=== PATIENT | female | born 1950 | race Hispanic/Latino ===

== ENCOUNTER 2016-06-12 16:12 | Emergency (ER) | payer MEDICARE ==
[2016-06-12 17:48] VITALS: BP 217/99
--- NOTE | 2016-06-12 18:19 | Emergency Department Report ---
Chief Complaint: Nausea/Vomiting/Diarrhea Stated Complaint: MOUTH INFECTION/NOT EATING Time Seen by Provider: 06/12/16 18:00 - HPI History of Present Illness: numerous vague co abd pain n/v mouth infections sob anxious Dr Hakeem Caruso no meds pmh htn htn in triage - Exam Vital Signs: Vital Signs 06/12/16 17:38 Temperature 98.5 F Pulse Rate 77 Blood Pressure 217/99 O2 Sat by Pulse 97 Oximetry MSE screening note: Focused history and physical exam performed. Due to findings the following was ordered: ED Disposition for MSE Condition: Stable Referrals: PRIMARY CARE, [Primary Care Provider] - 3-5 Days
[2016-06-12 19:57] LABS: Basophils % (Auto) 0.8 % (0.0-1.8); Eosinophils % (Auto) 0.6 % (0.0-4.3); Hematocrit 44.2 % (30.3-42.9); Mean Corpuscular HGB Conc 32 % (30-34); Mean Corpuscular Hemoglobin 24 pg (28-32); Mean Corpuscular Volume 77 fl (79-97); Platelet Count 179 K/mm3 (140-440); Red Blood Count 5.75 M/mm3 (3.65-5.03); Red Cell Distribution Width 19.1 % (13.2-15.2); White Blood Count 13.4 K/mm3 (4.5-11.0)
[2016-06-12 20:15] LABS: Alanine Aminotransferase 18 units/L (7-56); Albumin 4.5 g/dL (3.9-5); Albumin/Globulin Ratio 1.2 %; Alkaline Phosphatase 120 units/L (35-129); Anion Gap 23 mmol/L; BUN/Creatinine Ratio 21.66; Bilirubin,Total 1.1 mg/dL (0.1-1.2); Blood Urea Nitrogen 13 mg/dL (7-17); Calcium 9.9 mg/dL (8.4-10.2); Carbon Dioxide 20 mmol/L (22-30); Chloride 97.7 mmol/L (98-107); Glucose 181 mg/dL (65-100); Sodium 138 mmol/L (137-145); Total Protein 8.3 g/dL (6.3-8.2)
[2016-06-12 20:37] LABS: Potassium 2.6 mmol/L (3.6-5.0)
--- NOTE | 2016-06-13 07:18 | XRay Report ---
CHEST 2 VIEWS INDICATION: Dyspnea. COMPARISON: 09/19/2012. FINDINGS: PA and lateral chest radiographs demonstrate normal cardiomediastinal silhouette. Clear lungs. Proximal right humerus plate, screws and mild old deformity. Mild mid thoracic spine degenerative spurring. Osteopenia possible. CONCLUSION: No acute disease in the chest. Thank you for the opportunity to participate in this patient's care.
== END 2016-06-12 21:30 | disposition left against medical advice (07) ==
LOC: ED 16:12
DX: R10.9 Unspecified abdominal pain (principal); R06.02 Shortness of breath; R11.2 Nausea with vomiting, unspecified; I10 Essential (primary) hypertension; Z53.21 Procedure and treatment not carried out due to patient leaving prior to being seen by health care provider
CPT/HCPCS: 36415; 71020; 80053; 84484; 85025; 93005; 93010

== ENCOUNTER 2016-06-17 09:38 | Inpatient (IN) | payer MEDICARE ==
[2016-06-17 10:33] LABS: Basophils % (Auto) 1.2 % (0.0-1.8); Eosinophils % (Auto) 1.3 % (0.0-4.3); Hematocrit 41.5 % (30.3-42.9); Hemoglobin 13.4 gm/dl (10.1-14.3); Mean Corpuscular HGB Conc 32 % (30-34); Mean Corpuscular Volume 77 fl (79-97); Red Blood Count 5.39 M/mm3 (3.65-5.03); Red Cell Distribution Width 18.9 % (13.2-15.2); White Blood Count 10.2 K/mm3 (4.5-11.0)
[2016-06-17 10:38] LABS: Mean Corpuscular Hemoglobin 25 pg (28-32); Platelet Count 128 K/mm3 (140-440)
[2016-06-17 10:40] LABS: Anion Gap 21 mmol/L; Blood Urea Nitrogen 7 mg/dL (7-17); Calcium 9.1 mg/dL (8.4-10.2); Carbon Dioxide 20 mmol/L (22-30); Chloride 96.4 mmol/L (98-107); Glucose 272 mg/dL (65-100); Potassium 3.2 mmol/L (3.6-5.0); Sodium 134 mmol/L (137-145)
--- NOTE | 2016-06-17 10:55 | XRay Report ---
CHEST TWO VIEWS: 06/17/16 09:38:00 CLINICAL: Shortness of breath. COMPARISON: 06/12/16 FINDINGS: Normal heart and pulmonary vasculature. The lungs are normally expanded and clear. The bones and soft tissues are normal. IMPRESSION: Normal chest.
--- NOTE | 2016-06-17 11:29 | Emergency Department Report ---
ED General Adult HPI - General Chief complaint: Nausea/Vomiting/Diarrhea Stated complaint: TEST RESULTS FROM TUES/VOMITTING/ Time Seen by Provider: 06/17/16 11:28 Source: patient Mode of arrival: Ambulatory Limitations: No Limitations - History of Present Illness Initial comments: Patient presents with a variety of issues. She states she is "allergic to doctors". She was here recently and a low. She was hypokalemic at that time. She states that she has been having right leg swelling for over a week although she has not been traveling. She complains of some intermittent anterior chest pain intermittently since yesterday. It appears to be nonpleuritic and nonradiating in nature. She's also had some nausea and complains of dark urine. Despite knowing that she has type 2 diabetes and hypertension, she has been noncompliant with medication for some time. She states that she has been told that these conditions can affect her kidney function. When she saw her urine was dark, she determined that it was time to be seen by a physician. She has no prior history of known coronary artery disease. She states that her father from a cardiac arrest that she believes was due to a heart attack. She states that his sister had a "blood clot". -: week(s) Location: chest (chest pain intermittently since last night she states anterior nonradiating) Radiation: non-radiation Quality: aching Consistency: intermittent, now resolved Improves with: none Worsens with: none Associated Symptoms: nausea/vomiting, shortness of breath (on exertion not currently at rest), other (dark urine) Treatments Prior to Arrival: none - Related Data Home Medications Medication Instructions Recorded Confirmed Last Taken No Known Home Medications [No 06/17/16 06/17/16 Unknown Reported Home Medications] Allergies Allergy/AdvReac Type Severity Reaction Status Date / Time No Known Allergies Allergy Unverified 06/17/16 09:48 ED Review of Systems ROS: Stated complaint: TEST RESULTS FROM TUES/VOMITTING/ Other details as noted in HPI Constitutional: denies: chills, fever Eyes: denies: eye pain, eye discharge, vision change ENT: denies: ear pain, throat pain Respiratory: denies: cough, shortness of breath, wheezing Cardiovascular: chest pain. denies: palpitations Endocrine: no symptoms reported Gastrointestinal: as per HPI, nausea. denies: abdominal pain, diarrhea Genitourinary: as per HPI. denies: urgency, dysuria, discharge Musculoskeletal: denies: back pain, joint swelling, arthralgia Skin: denies: rash, lesions Neurological: denies: headache, weakness, paresthesias Psychiatric: denies: anxiety, depression Hematological/Lymphatic: denies: easy bleeding, easy bruising ED Past Medical Hx - Past Medical History Previous Medical History?: Yes Hx Hypertension: Yes - Surgical History Past Surgical History?: Yes Additional Surgical History: Tonsilectomy & R arm surgery - Social History Smoking Status: Never Smoker Substance Use Type: Non Opiate Pain - Medications Home Medications: Home Medications Medication Instructions Recorded Confirmed Last Taken Type No Known Home Medications [No 06/17/16 06/17/16 Unknown History Reported Home Medications] ED Physical Exam - General Limitations: No Limitations General appearance: alert, in no apparent distress - Head Head exam: Present: atraumatic, normocephalic - Eye Eye exam: Present: normal appearance, PERRL, EOMI. Absent: scleral icterus - ENT ENT exam: Present: normal exam, mucous membranes moist - Neck Neck exam: Present: normal inspection - Respiratory Respiratory exam: Present: normal lung sounds bilaterally. Absent: respiratory distress - Cardiovascular Cardiovascular Exam: Present: regular rate, normal rhythm. Absent: systolic murmur, diastolic murmur, rubs, gallop - GI/Abdominal GI/Abdominal exam: Present: soft, normal bowel sounds. Absent: distended, tenderness, guarding, rebound, rigid - Extremities Exam Extremities exam: Present: pedal edema (mild), other (the right leg is somewhat increased in girth size compared to the left). Absent: tenderness, joint swelling, calf tenderness - Back Exam Back exam: Present: normal inspection. Absent: full ROM, CVA tenderness (L), muscle spasm, paraspinal tenderness - Neurological Exam Neurological exam: Present: alert, oriented X3, CN II-XII intact. Absent: motor sensory deficit - Psychiatric Psychiatric exam: Present: normal affect, normal mood - Skin Skin exam: Present: warm, dry, intact, normal color. Absent: rash ED Course Vital Signs 06/17/16 09:49 Temperature 98 F Pulse Rate 78 Respiratory 18 Rate Blood Pressure 299/99 O2 Sat by Pulse 98 Oximetry - Reevaluation(s) Reevaluation #1: Patient was awaiting hospitalist admission. She developed SVT at 177. 06/17/16 12:57 Reevaluation #2: Patient was in an SVT at approximately 175. She stated that this did not induce her chest pain. She also stated that she had tachycardia like this before but has never seen a doctor. I gave her 10 mg of diltiazem which successfully cardioverted her. Post cardioversion EKG showed no ischemic changes and sinus rhythm 06/17/16 13:06 ED Medical Decision Making - Lab Data Result diagrams: 06/17/16 10:03 06/17/16 10:03 Laboratory Results - last 24 hr 06/17/16 06/17/16 10:03 10:03 WBC 10.2 RBC 5.39 H Hgb 13.4 Hct 41.5 MCV 77 L MCH 25 L MCHC 32 RDW 18.9 H Plt Count 128 L Lymph % (Auto) 21.0 [place] % (Auto) 7.0 Eos % (Auto) 1.3 Baso % (Auto) 1.2 Lymph # 2.1 [place] # 0.7 Eos # 0.1 Baso # 0.1 Seg Neutrophils % 69.5 Seg Neutrophils # 7.1 Sodium 134 L Potassium 3.2 L D Chloride 96.4 L Carbon Dioxide 20 L Anion Gap 21 BUN 7 Creatinine 0.5 L Estimated GFR > 60 BUN/Creatinine Ratio 14.00 Glucose 272 H Calcium 9.1 Troponin T < 0.010 - EKG Data -: EKG Interpreted by Me EKG shows normal: sinus rhythm (PAC), axis, intervals, ST-T waves Rate: normal - EKG Data Interpretation: other (QS in V2 could be indicative of previous septal infarct. May be secondary to lead placement. Consider LVH) - Radiology Data interpreted by me: Old right numerous hardware. No acute disease in the chest. Critical Care Time: Yes Critical care time in (mins) excluding proc time.: 45 Critical care attestation.: If time is entered above; I have spent that time in minutes in the direct care of this critically ill patient, excluding procedure time. ED Disposition Clinical Impression: Uncontrolled hypertension, SVT (supraventricular tachycardia) Chest pain Qualifiers: Chest pain type: unspecified Qualified Code(s): R07.9 - Chest pain, unspecified Type 2 diabetes mellitus Qualifiers: Diabetes mellitus complication status: without complication Diabetes mellitus exterminator helper insulin use: without exterminator helper use Qualified Code(s): E11.9 - Type 2 diabetes mellitus without complications Disposition: OP ADMITTED IP TO THIS HOSP Is pt being admited?: Yes Does the pt Need Aspirin: Yes Condition: Stable Instructions: Chest Pain (ED), Diabetes Mellitus Type 2 in Adults (ED), Hypertension (ED) Referrals: PRIMARY CARE, [Primary Care Provider] - 3-5 Days Time of Disposition: 13:10
[2016-06-17] MEDS ORDERED: NORMODYNE IV ONE (11:32)
[2016-06-17] MEDS ORDERED: K-DUR PO ONE (11:32)
[2016-06-17] MEDS ORDERED: ASPIRIN PO ONE (11:32)
[2016-06-17 11:45] LABS: Creatine Kinase MB 1.1 ng/mL (0.0-4.0)
[2016-06-17 11:46] LABS: Magnesium 2.2 mg/dL (1.7-2.3)
--- NOTE | 2016-06-17 11:50 | Admit Criteria Form ---
Admission Criteria Documentation: HYPERTENSION Clinical Indications for Admission to Inpatient Care ( Place "X" for any and all applicable criteria): Admission is indicated for ANY ONE of the following(1)(2)(3)(4): [ ]I. Hypertensive emergency, with evidence of acute and progressing target organ disease as indicated by ANY ONE of the following: [ ]a) Hypertensive encephalopathy (eg, confusion, altered mental status) [ ]b) Cerebral infarction [ ]c) Intracranial hemorrhage [ ]d) Myocardial ischemia or infarction [ ]e) Pulmonary edema [ ]f) Aortic dissection [ ]g) Seizure [ ]h) Acute renal insufficiency [ ]i) Papilledema [ ]j) Microangiopathic hemolytic anemia [ ]II. Adrenergic crisis (eg, severe hypertension due to pheochromocytoma crisis, cocaine or amphetamine intoxication, or clonidine withdrawal) [X ]III. Severe hypertension (SBP greater than 180 mmHg or DBP greater than 110 mmHg or greater than the 95th percentile for age, gender, and height in pediatric patients) that cannot be controlled (eg, to SBP less than 160 mmHg and DBP less than 100 mmHg in adults) by treatment with oral medication in emergency department or observation care Extended stay beyond goal length of stay may be needed for(11)(12)(13): [ ]a) Persistent hypertensive encephalopathy [ ]b) Continuation of pulmonary edema [ ]c) Recurring or persistent severe hypertension [ ]d) Target organ damage (eg, angina, stroke, aortic dissection) [ ]e) Associated renal insufficiency The original [employer] content created by [employer] has been revised. The portions of the content which have been revised are identified through the use of italic text or in bold, and [facility] has neither reviewed nor approved the modified material. All other unmodified content is copyright [employer] [email or web address]. Please see references footnoted in the original [employer] [email or web address] edition 2016 Admission Criteria Met: Yes
[2016-06-17 12:53] LABS: INR 1.12 (0.87-1.13)
[2016-06-17] MEDS ORDERED: CARDIZEM/D5W 100MG/100ML 0 MG/0 ML BAG IV ONE (12:53)
[2016-06-17] MEDS ORDERED: CARDIZEM IV ONE ×2 (12:54→12:56)
[2016-06-17] MEDS ORDERED: LOPRESSOR ONE (13:01)
[2016-06-17] MEDS ORDERED: LOPRESSOR PO ONE (13:05)
--- NOTE | 2016-06-17 14:09 | History and Physical Report ---
History of Present Illness Chief complaint: I just dont feel good History of present illness: 66 YO Female with HTN, DM, Medication Noncompliance presents to ED for evaluation. Pt states that she has not been feeling well for the past week. Pt states that she has experienced swelling in her right leg for the past week, discomfort in her chest which is exacerbated by deep breathing, as well as nausea, dark urine and some moderate discomfort with urination. Pt complains of chest pain, for the past several days, Pain is 5/10, intermittent, substernal, nonradiating, not exacerbated with exertion, or relieved with rest. Pt denies fever, chills, Palpitations, NVD, Syncope, Hemoptysis, BRPBR, hematemesis, trauma, Prolonged travel/immobility, individual/family history of DVT/PE, recent ill contacts, ingestion of food/water from new or different sources. Past History Past Medical History: diabetes, hypertension Past Surgical History: tonsillectomy, Other (Right Arm) Social history: single. denies: smoking, alcohol abuse, prescription drug abuse Family history: no significant family history, other (reviewed) Medications and Allergies Allergies Allergy/AdvReac Type Severity Reaction Status Date / Time No Known Allergies Allergy Verified 06/17/16 13:24 Home Medications Medication Instructions Recorded Confirmed Last Taken Type No Known Home Medications [No 06/17/16 06/17/16 Unknown History Reported Home Medications] Review of Systems All systems: negative Cardiovascular: chest pain Exam - Constitutional Vitals: Temp Pulse Resp BP Pulse Ox 98 F 70 18 167/77 97 06/17/16 09:49 06/17/16 13:30 06/17/16 13:30 06/17/16 13:30 06/17/16 13:30 General appearance: Present: no acute distress, well-nourished - EENT Eyes: Present: PERRL ENT: hearing intact, clear oral mucosa - Neck Neck: Present: supple, normal ROM - Respiratory Respiratory effort: normal Respiratory: bilateral: CTA - Cardiovascular Heart Sounds: Present: S1 & S2. Absent: rub, click - Extremities Extremities: pulses symmetrical, No edema Peripheral Pulses: within normal limits - Abdominal General gastrointestinal: Present: soft, non-tender, non-distended, normal bowel sounds Female genitourinary: Present: normal - Integumentary Integumentary: Present: clear, warm, dry - Musculoskeletal Musculoskeletal: gait normal, strength equal bilaterally - Psychiatric Psychiatric: appropriate mood/affect, intact judgment & insight - Neurologic Neurologic: CNII-XII intact, moves all extremities Results - Labs CBC & Chem 7: 06/17/16 10:03 06/17/16 10:03 Labs: Abnormal lab results 06/17/16 06/17/16 Range/Units 10:03 10:03 RBC 5.39 H (3.65-5.03) M/mm3 MCV 77 L (79-97) fl MCH 25 L (28-32) pg RDW 18.9 H (13.2-15.2) % Plt Count 128 L (140-440) K/mm3 Sodium 134 L (137-145) mmol/L Potassium 3.2 L D (3.6-5.0) mmol/L Chloride 96.4 L (98-107) mmol/L Carbon Dioxide 20 L (22-30) mmol/L Creatinine 0.5 L (0.7-1.2) mg/dL Glucose 272 H (65-100) mg/dL Assessment and Plan - Patient Problems (1) ACS (acute coronary syndrome) Current Visit: Yes Status: Acute Plan to address problem: Chest Pain Protocol: telemetry, serial cardiac enzymes, ekg,stress test, echo, d dimer, RLE duplex, CTA chest, Cardiology consulted (2) Accelerated hypertension Current Visit: Yes Status: Acute Plan to address problem: Monitor bp q shift, continu current therapy, Lisinopril, hydralazine prn (3) Metabolic acidosis Current Visit: Yes Status: Acute Plan to address problem: Supportive care, IVF (4) SVT (supraventricular tachycardia) Current Visit: Yes Status: Acute Plan to address problem: Cardizem in ED, pt converted to NSR. Cardiology team consulted, (5) Diabetes Current Visit: Yes Status: Acute Qualifiers: Diabetes mellitus type: D Diabetes mellitus complication status: D Diabetes mellitus complication detail: D Diabetic retinopathy severity: D Proliferative retinopathy type: P Diabetes mellitus macular edema: D Diabetes mellitus fci insulin use: D Laterality: L Chronic kidney disease stage: C Plan to address problem: ADA diet, insulin, accu check (6) DVT prophylaxis Current Visit: Yes Status: Acute
[2016-06-17] MEDS ORDERED: TYLENOL PO PRN (14:11)
[2016-06-17] MEDS ORDERED: DULCOLAX PR PRN (14:11)
[2016-06-17] MEDS ORDERED: MILK OF MAGNESIA PO PRN (14:11)
[2016-06-17] MEDS ORDERED: DUONEB 0.5 MG-3 MG/3 ML SOLN IH PRN (14:11)
[2016-06-17] MEDS ORDERED: SODIUM CHLORIDE FLUSH SYRINGE 10 ML IV PRN (14:11)
[2016-06-17] MEDS ORDERED: ZOFRAN IV PRN (14:11)
[2016-06-17] MEDS ORDERED: D50W (25GM) IV PRN (14:15)
[2016-06-17] MEDS ORDERED: PROVENTIL IH PRN (14:43)
[2016-06-17] MEDS ORDERED: ATROPINE 0.1% (CARDIAC) ONE (15:10)
[2016-06-17 15:52] LABS: Bacteria,Urine 3+ /HPF (Negative); Bilirubin,Urine NEG (Negative); Blood,Urine SM (Negative); Ketones,Urine NEG (Negative); Leukocyte Esterase,Urine SM (Negative); Nitrite,Urine NEG (Negative); RBC,Urine < 1.0 /HPF (0.0-6.0); Urobilinogen,Urine < 2.0 mg/dL (<2.0)
[2016-06-17 16:36] LABS: Creatine Kinase MB 1.1 ng/mL (0.0-4.0)
[2016-06-17 16:37] LABS: Creatine Kinase 65 units/L (30-135)
[2016-06-17] MEDS: NOVOLOG SUB-Q SCH ×2 (17:48→23:49)
[2016-06-17] MEDS: APRESOLINE IV PRN (17:48)
[2016-06-17 19:55] LABS: Creatine Kinase MB 1.1 ng/mL (0.0-4.0)
[2016-06-17 19:56] LABS: Creatine Kinase 76 units/L (30-135)
[2016-06-17] MEDS ORDERED: PNEUMOVAX 23 IM ONE (20:04)
[2016-06-17] MEDS ORDERED: FLUARIX QUAD 2016-2017(36 MOS+) IM ONE (20:04)
[2016-06-17] MEDS ORDERED: LOVENOX SUB-Q ONE ×2 (20:20→20:30)
[2016-06-17 21:54] LABS: Creatine Kinase MB 1.1 ng/mL (0.0-4.0)
[2016-06-17 21:55] LABS: Creatine Kinase 61 units/L (30-135)
[2016-06-18] MEDS: APRESOLINE IV PRN ×2 (01:22→18:41)
[2016-06-18] MEDS ORDERED: LEXISCAN IV ONE ×2 (08:28→08:37)
[2016-06-18] MEDS: NOVOLOG SUB-Q SCH ×4 (08:37→22:18)
[2016-06-18] MEDS ORDERED: ZESTRIL PO SCH (10:00)
[2016-06-18] MEDS ORDERED: NACL ONE ×2 (11:57→12:33)
[2016-06-18] MEDS ORDERED: FLUARIX QUAD 2016-2017(36 MOS+) IM ONE (12:00)
[2016-06-18] MEDS ORDERED: PNEUMOVAX 23 IM ONE (12:00)
--- NOTE | 2016-06-18 13:18 | Cat Scan Report ---
CT angiography of the chest with 3-D reconstructed images. History: Dyspnea. Findings: There is no evidence of pulmonary emboli. The lungs are clear. There is no pleural fluid. A large goiter especially involving the right lobe is noted but is incompletely imaged on this study. A circular calcified area is seen in the inferior aspect of the right lobe of the thyroid. Impression: 1. No evidence of pulmonary emboli. 2. Thyromegaly, partially imaged.
--- NOTE | 2016-06-18 18:27 | Consultation ---
History of Present Illness Consult date: 06/18/16 Consult reason: chest pain History of present illness: Patient is 66-year-old woman presented to the emergency room complains of general malaise, nausea and vomiting. Most notable finding presentation was severe uncontrolled hypertension, systolic blood pressure was recorded at 299. At this time, the patient remains severely hypertensive with systolic blood pressures still 199-200. She has a history of chronic hypertension but has been noncompliant with medications reportedly for several years. While here, during review of systems, there was some report of shortness of breath, atypical chest pain which prompted recommendation for cardiac consultation. The patient has no angina type chest pain, her ECG was normal sinus rhythm, normal ECG, and a Persantin thallium stress test ordered the medical team was completed, and was normal perfusion. Patient's major acute morbidity at this time continues to be the severe uncontrolled hypertension, which is still poorly controlled on the current medications of lisinopril and hydralazine. Past History Past Medical History: diabetes, hypertension Past Surgical History: tonsillectomy, Other (Right Arm) Social history: single. denies: smoking, alcohol abuse, prescription drug abuse Family history: no significant family history, other (reviewed) Medications and Allergies Allergies Allergy/AdvReac Type Severity Reaction Status Date / Time No Known Allergies Allergy Verified 06/17/16 13:24 Home Medications Medication Instructions Recorded Confirmed Last Taken Type No Known Home Medications [No 06/17/16 06/17/16 Unknown History Reported Home Medications] Active Meds: Active Medications Acetaminophen (Tylenol) 650 mg PO Q4H PRN PRN Reason: Pain MILD(1-3)/Fever >100.5/VELARDE Albuterol (Proventil) 2.5 mg IH Q6HRT PRN PRN Reason: Wheezing Bisacodyl (Dulcolax) 10 mg AK QDAY PRN PRN Reason: Constipation unrelieved by MOM Dextrose (D50w (25gm)) 50 ml IV PRN PRN PRN Reason: Hypoglycemia Hydralazine HCl (Apresoline) 10 mg IV Q6HR PRN PRN Reason: Hypertension SYS>155 Last Admin: 06/18/16 01:22 Dose: 10 mg Insulin Aspart (Novolog) 0 units SUB-Q ACHS CINDI PRN Reason: Protocol Last Admin: 06/18/16 12:48 Dose: Not Given Lisinopril (Zestril) 10 mg PO QDAY CINDI Last Admin: 06/18/16 10:37 Dose: 10 mg Magnesium Hydroxide (Milk Of Magnesia) 30 ml PO Q4H PRN PRN Reason: Constipation Ondansetron HCl (Zofran) 4 mg IV Q8H PRN PRN Reason: N/V unrelieved by Reglan Sodium Chloride (Sodium Chloride Flush Syringe 10 Ml) 10 ml IV PRN PRN PRN Reason: LINE FLUSH Review of Systems Cardiovascular: shortness of breath, no chest pain, no orthopnea, no palpitations, no rapid/irregular heart beat, no edema, no syncope, no lightheadedness Physical Examination Vital Signs Temp Pulse Resp BP Pulse Ox 98 F 78 18 299/99 98 06/17/16 09:49 06/17/16 09:49 06/17/16 09:49 06/17/16 09:49 06/17/16 09:49 General appearance: no acute distress HEENT: Positive: PERRL Neck: Positive: neck supple Cardiac: Positive: Reg Rate and Rhythm Lungs: Positive: Decreased Breath Sounds Neuro: Positive: Grossly Intact Abdomen: Positive: Soft Female genitourinary: deferred Skin: Positive: Clear Extremities: Absent: edema Results 06/17/16 10:03 06/17/16 10:03 Cardiac Enzymes 06/17/16 06/17/16 Range/Units 19:18 20:54 CK-MB (CK-2) 1.1 1.1 (0.0-4.0) ng/mL EKG interpretations - Telemetry EKG Rhythm: Sinus Rhythm Assessment and Plan - Patient Problems (1) Uncontrolled hypertension Current Visit: Yes Status: Acute Plan to address problem: Uncontrolled hypertension is the patient's major clinical problem at this time. I will switch her therapy to Diovan and Procardia for optimal blood pressure control. (2) Atypical chest pain Current Visit: Yes Status: Acute Plan to address problem: ECG was normal, cardiac enzymes normal and thallium stress test normal. No further cardiac workup is indicated.
--- NOTE | 2016-06-18 19:38 | Progress Note ---
Assessment and Plan Assessment and plan: 1. Hypertensive urgency On lisinopril and hydralazine BP still elevated Adjust regimen 2. Chest pain ACS excluded based on EKG, serial cardiac enzymes, echocardiogram and MPI PE excluded based on negative CTA Per cardiology atypical Secondary to uncontrolled hypertension versus GERD 3. SVT Received Cardizem in ER and converted back to NSR 4. Uncontrolled diabetes Hemoglobin A1c 9.3 Counseled regarding importance of adherence to treatment and follow-up appointments Start insulin along with Accu-Cheks and SSI to assess insulin requirements Nurse to teach her to self administer insulin 5. Hyperlipidemia Statin 6. Thrombocytopenia Mild, monitor 7. Hypokalemia Replace, recheck in a.m. 8. DVT prophylaxis History Interval history: doing well today, no specific complaints Hospitalist Physical - Constitutional Vitals: Temp Pulse Resp BP Pulse Ox 98.1 F 76 20 200/87 96 06/18/16 17:55 06/18/16 17:55 06/18/16 17:55 06/18/16 17:55 06/18/16 17:55 General appearance: Present: no acute distress - EENT Eyes: Present: PERRL, EOM intact. Absent: scleral icterus, conjunctival injection - Respiratory Respiratory effort: normal Respiratory: bilateral: CTA, negative: rhonchi, wheezing - Cardiovascular Rhythm: regular Heart Sounds: Present: S1 & S2. Absent: systolic murmur - Extremities Extremities: no ischemia - Abdominal General gastrointestinal: soft, non-tender, non-distended, normal bowel sounds - Psychiatric Psychiatric: cooperative - Neurologic Neurologic: CNII-XII intact, no focal deficits Results - Labs CBC & Chem 7: 06/17/16 10:03 06/17/16 10:03 Labs: Laboratory Last Values WBC 10.2 K/mm3 (4.5-11.0) 06/17/16 10:03 RBC 5.39 M/mm3 (3.65-5.03) H 06/17/16 10:03 Hgb 13.4 gm/dl (10.1-14.3) 06/17/16 10:03 Hct 41.5 % (30.3-42.9) 06/17/16 10:03 MCV 77 fl (79-97) L 06/17/16 10:03 MCH 25 pg (28-32) L 06/17/16 10:03 MCHC 32 % (30-34) 06/17/16 10:03 RDW 18.9 % (13.2-15.2) H 06/17/16 10:03 Plt Count 128 K/mm3 (140-440) L 06/17/16 10:03 Lymph % (Auto) 21.0 % (13.4-35.0) 06/17/16 10:03 [place] % (Auto) 7.0 % (0.0-7.3) 06/17/16 10:03 Eos % (Auto) 1.3 % (0.0-4.3) 06/17/16 10:03 Baso % (Auto) 1.2 % (0.0-1.8) 06/17/16 10:03 Lymph # 2.1 K/mm3 (1.2-5.4) 06/17/16 10:03 [place] # 0.7 K/mm3 (0.0-0.8) 06/17/16 10:03 Eos # 0.1 K/mm3 (0.0-0.4) 06/17/16 10:03 Baso # 0.1 K/mm3 (0.0-0.1) 06/17/16 10:03 Seg Neutrophils % 69.5 % (40.0-70.0) 06/17/16 10:03 Seg Neutrophils # 7.1 K/mm3 (1.8-7.7) 06/17/16 10:03 PT 14.3 Sec. (12.2-14.9) 06/17/16 11:57 INR 1.12 (0.87-1.13) 06/17/16 11:57 APTT 31.0 Sec. (24.2-36.6) 06/17/16 11:57 D-Dimer 260.17 ng/mlDDU (0-234) H 06/17/16 15:45 Sodium 134 mmol/L (137-145) L 06/17/16 10:03 Potassium 3.2 mmol/L (3.6-5.0) L D 06/17/16 10:03 Chloride 96.4 mmol/L (98-107) L 06/17/16 10:03 Carbon Dioxide 20 mmol/L (22-30) L 06/17/16 10:03 Anion Gap 21 mmol/L 06/17/16 10:03 BUN 7 mg/dL (7-17) 06/17/16 10:03 Creatinine 0.5 mg/dL (0.7-1.2) L 06/17/16 10:03 Estimated GFR > 60 ml/min 06/17/16 10:03 BUN/Creatinine Ratio 14.00 % 06/17/16 10:03 Glucose 272 mg/dL (65-100) H 06/17/16 10:03 POC Glucose 189 (70-105) H 06/17/16 22:47 Hemoglobin A1c 9.3 % (4-6) H 06/17/16 15:45 Calcium 9.1 mg/dL (8.4-10.2) 06/17/16 10:03 Magnesium 2.20 mg/dL (1.7-2.3) 06/17/16 10:03 Total Creatine Kinase 61 units/L (30-135) 06/17/16 20:54 CK-MB (CK-2) 1.1 ng/mL (0.0-4.0) 06/17/16 20:54 CK-MB (CK-2) Rel Index 1.8 (0-4) 06/17/16 20:54 Troponin T < 0.010 ng/mL (0.00-0.029) 06/17/16 20:54 NT-Pro-B Natriuret Pep 489.1 pg/mL (0-900) 06/17/16 11:57 Triglycerides 163 mg/dL (2-149) H 06/17/16 15:45 Cholesterol 145 mg/dL (50-199) 06/17/16 15:45 LDL Cholesterol Direct 77 mg/dL (50-130) 06/17/16 15:45 HDL Cholesterol 36 mg/dL (40-59) L 06/17/16 15:45 Cholesterol/HDL Ratio 4.02 % 06/17/16 15:45 Urine Color Straw (Yellow) 06/17/16 13:39 Urine Turbidity Clear (Clear) 06/17/16 13:39 Urine pH 7.0 (5.0-7.0) 06/17/16 13:39 Ur Specific [place] 1.003 (1.003-1.030) 06/17/16 13:39 Urine Protein 30 mg/dl mg/dL (Negative) 06/17/16 13:39 Urine Glucose (UA) Neg mg/dL (Negative) 06/17/16 13:39 Urine Ketones Neg mg/dL (Negative) 06/17/16 13:39 Urine Blood Sm (Negative) 06/17/16 13:39 Urine Nitrite Neg (Negative) 06/17/16 13:39 Urine Bilirubin Neg (Negative) 06/17/16 13:39 Urine Urobilinogen < 2.0 mg/dL (<2.0) 06/17/16 13:39 Ur Leukocyte Esterase Sm (Negative) 06/17/16 13:39 Urine WBC (Auto) 1.0 /HPF (0.0-6.0) 06/17/16 13:39 Urine RBC (Auto) < 1.0 /HPF (0.0-6.0) 06/17/16 13:39 U Epithel Cells (Auto) 2.0 /HPF (0-13.0) 06/17/16 13:39 Urine Bacteria (Auto) 3+ /HPF (Negative) 06/17/16 13:39 - Imaging and Cardiology EKG: image reviewed (no ischemic changes) Chest x-ray: image reviewed (normal) CT scan - chest: report reviewed (no PE) Venous US: report reviewed (no DVT )
[2016-06-18] MEDS: PROCARDIA XL PO SCH (20:16)
[2016-06-18] MEDS: DIOVAN PO SCH (20:21)
--- NOTE | 2016-06-18 23:09 | Treadmill Report ---
THALLIUM STRESS TEST LEFT VENTRICLE: Left ventricular chamber size is within normal. Perfusion study demonstrates homogeneous uptake of the tracer in all segments. No significant perfusion defects identified. Gated analysis demonstrates normal left ventricular systolic function, ejection fraction 73%. CONCLUSION: Normal myocardial perfusion study. [facility]# [id number] CA/NTS
--- NOTE | 2016-06-19 11:02 | Discharge Summary ---
Providers - Providers Date of Admission: 06/17/16 14:11 Date of discharge: 06/19/16 Attending physician: CLAIRE SALGADO Consults: Cardiology Primary care physician: HAMZAH JACKSON MD Hospitalization Reason for admission: chest pain Condition: Stable Pertinent studies: CXR CTA chest ECHO MPI Doppler LE [facility] course: 66 years old female with hypertension, diabetes, noncompliance presented to Hospital for chest pain. Acute coronary syndrome TRANSITION MGR have been excluded; possible secondary to uncontrolled hypertension. She was extensively counseled regarding importance of adherence to treatment her chronic conditions and follow -up appointments. She started on antihypertensives and insulin and her regimens have been adjusted. Discharged in stable condition with PCP follow-up. Discharge diagnoses: 1. Hypertensive urgency 2. Chest pain - atypical, likely due to #1 3. SVT 4. Uncontrolled diabetes 5. Hyperlipidemia 6. Thrombocytopenia 7. Hypokalemia Disposition: DISCHARGED TO HOME OR SELFCARE Time spent for discharge: 35 minutes Core Measure Documentation - Palliative Care Palliative Care/ Comfort Measures: Not Applicable - Core Measures Any of the following diagnoses?: none Exam - Physical Exam Narrative exam: Patient seen and examined: - Constitutional Vitals: Temp Pulse Resp BP Pulse Ox 98.5 F 76 16 150/65 96 06/19/16 08:00 06/19/16 04:00 06/19/16 08:00 06/19/16 08:00 06/19/16 09:16 General appearance: Present: no acute distress - EENT Eyes: Present: PERRL, EOM intact. Absent: scleral icterus, conjunctival injection - Neck Neck: Present: supple, normal ROM. Absent: masses or JVD - Respiratory Respiratory effort: normal Respiratory: bilateral: CTA, negative: rhonchi, wheezing - Cardiovascular Rhythm: regular Heart Sounds: Present: S1 & S2. Absent: systolic murmur - Extremities Extremities: no ischemia - Abdominal General gastrointestinal: Present: soft, non-tender, non-distended, normal bowel sounds - Musculoskeletal Musculoskeletal: strength equal bilaterally - Psychiatric Psychiatric: cooperative - Neurologic Neurologic: CNII-XII intact, no focal deficits Plan Activity: advance as tolerated Diet: low cholesterol, low salt Follow up with: PRIMARY CARE, [Primary Care Provider] - 3-[facility]Outside] - 7 Days Prescriptions: AtorvaSTATin [Lipitor] 10 mg PO QHS #30 tablet Aspirin [Aspirin BABY CHEW TAB] 81 mg PO QDAY #30 tab.chew Insulin NPH/Regular [NovoLIN 70/30] 5 unit SQ BIDDIAB 30 Days NIFEdipine XL [Procardia Xl] 60 mg PO QDAY #30 tablet Syringe & Needle,Insulin,1 ml [Insulin Syringe/Needle 1 ML] 1 each MC BIDDIAB # 60 disp.syrin Valsartan [Diovan] 160 mg PO DAILY #30 tablet Pending Studies teaching to self administer insulin
--- NOTE | 2016-06-19 12:00 | Progress Note ---
Assessment and Plan Hypertension -controlled on diovan and procardia Chest pain, atypical thallium stress test normal this admission EF 65-70% on echo Plan: Continue optimal medical therapy for hypertension. No further cardiac workup is indicated. Subjective Date of service: 06/19/16 Interval history: Patient denies chest pain. BP today, 123/68. Objective Vital Signs Temp Pulse Pulse Pulse Resp Resp BP 06/19/16 09:16 06/19/16 08:00 98.5 F 16 06/19/16 04:00 98.5 F 76 18 06/19/16 00:00 98.5 F 80 18 06/18/16 21:16 20 06/18/16 20:32 82 20 06/18/16 20:31 20 06/18/16 20:21 88 158/68 06/18/16 20:20 98.2 F 88 18 06/18/16 20:16 20 06/18/16 19:11 94 H 06/18/16 17:55 98.1 F 76 20 BP Pulse Ox 06/19/16 09:16 96 06/19/16 08:00 150/65 95 06/19/16 04:00 123/68 94 06/19/16 00:00 147/65 98 06/18/16 21:16 06/18/16 20:32 96 06/18/16 20:31 06/18/16 20:21 06/18/16 20:20 158/68 97 06/18/16 20:16 06/18/16 19:11 06/18/16 17:55 200/87 96 - Physical Examination General: No Apparent Distress HEENT: Positive: PERRL Neck: Positive: neck supple Cardiac: Positive: Reg Rate and Rhythm Lungs: Positive: Decreased Breath Sounds Neuro: Positive: Grossly Intact Extremities: Absent: edema
[2016-06-19 14:03] VITALS: BP 150/70
[2016-06-19] MEDS: DIOVAN PO SCH (14:19)
[2016-06-19] MEDS: NOVOLOG SUB-Q SCH ×2 (14:19→14:20)
[2016-06-19] MEDS: PROCARDIA XL PO SCH (14:19)
== END 2016-06-19 15:42 | disposition home or self-care (01) | DRG 309 ==
LOC: ED 09:38 → 4A 14:11
PROVIDERS: ADMIT Internal Medicine; ATTEND Internal Medicine
DX: I47.1 Supraventricular tachycardia (principal); E87.2 Acidosis; R07.89 Other chest pain; E11.9 Type 2 diabetes mellitus without complications; I10 Essential (primary) hypertension; E87.6 Hypokalemia; Z91.14 Patient's other noncompliance with medication regimen; Z83.3 Family history of diabetes mellitus; Z82.49 Family history of ischemic heart disease and other diseases of the circulatory system
CPT/HCPCS: 36415; 71020; 71275; 78452; 80048; 80061; 81001; 82550; 82553; 82962; 83036; 83735; 83880; 84484; 85025; 85379; 85610; 85730; 90471; 90686; 90732; 93005; 93010; 93017; 93306; 96374; A9502; G0008; G0009; J0153; J0360; J0461; J1650; J1815; J2405; J2785; Q9967

== ENCOUNTER 2016-07-10 12:51 | Outpatient (CLI) | payer MEDICARE ==
--- NOTE | 2016-07-11 07:54 | Ultrasound Report ---
ULTRASOUND THYROID SCAN HISTORY: Enlarged thyroid gland, thyromegaly. FINDINGS: The right thyroid lobe measures 8.8 x 3.9 x 4.0 cm. The left thyroid lobe measures 7.5 x 3.1 x 2.8 cm. The isthmus measures 0.7 cm in thickness. There are numerous bilateral solid thyroid nodules. Approximately 7 nodules are identified in the right lobe with the largest measuring 3.9 cm at the inferior pole. There are approximately 5 nodules in the left thyroid lobe with the largest measuring 2.4 cm near the inferior pole. There are 2 nodules in a right side of the isthmus measuring up to 1 cm. All nodules have similar appearance. No cystic change, calcifications or increased blood flow on color Doppler. Impression: Multinodular goiter. Consider surveillance.
== END 2016-07-10 12:52 | disposition home or self-care (01) ==
LOC: US 12:51
PROVIDERS: ATTEND Nurse Practitioner
DX: E05.90 Thyrotoxicosis, unspecified without thyrotoxic crisis or storm (principal); E04.2 Nontoxic multinodular goiter
CPT/HCPCS: 76536

== ENCOUNTER 2016-08-15 07:48 | Outpatient (CLI) | payer MEDICARE ==
--- NOTE | 2016-08-16 09:23 | Nuclear Medicine Report ---
NUCLEAR MEDICINE THYROID UPTAKE MULTIPLE History: Hyperthyroidism. Findings: The scintigraphic images demonstrate very poor uptake of the radiotracer by the thyroid parenchyma. Thyroid uptake is similar to background and is not confidently delineated on the images. No hot nodule is appreciated. 4 hour uptake measures 1.7%. Normal range 4-18%. 24 hour uptake measures 1.3%. Normal range 18-36%. Impression: Very poor function and uptake of the radiotracer. Severely depressed 4 and 24-hour uptake values as described.
== END 2016-08-15 07:49 | disposition home or self-care (01) ==
LOC: NM 07:48
PROVIDERS: ATTEND Specialist
DX: E05.90 Thyrotoxicosis, unspecified without thyrotoxic crisis or storm (principal); I10 Essential (primary) hypertension; Z79.82 Long term (current) use of aspirin; Z79.899 Other long term (current) drug therapy
CPT/HCPCS: 78012; A9516

== ENCOUNTER 2018-05-14 09:56 | Outpatient (CLI) | payer MEDICARE ==
[2018-05-14 11:09] LABS: Basophils # (Auto) 0.1 K/mm3 (0.0-0.1); Eosinophils # (Auto) 0.2 K/mm3 (0.0-0.4); Hemoglobin 14.2 gm/dl (10.1-14.3); Lymphocytes # (Auto) 2.1 K/mm3 (1.2-5.4); Mean Corpuscular HGB Conc 34 % (30-34); Mean Corpuscular Volume 86 fl (79-97); Monocytes # (Auto) 0.6 K/mm3 (0.0-0.8); Platelet Count 194 K/mm3 (140-440); Red Blood Count 4.91 M/mm3 (3.65-5.03); Red Cell Distribution Width 14.9 % (13.2-15.2)
[2018-05-14 11:27] LABS: Alanine Aminotransferase 31 units/L (7-56); Albumin 4.3 g/dL (3.9-5); BUN/Creatinine Ratio 19; Blood Urea Nitrogen 13 mg/dL (7-17); Calcium 9.9 mg/dL (8.4-10.2); Hemolysis Index 17; LDL Cholesterol,Direct 68 mg/dL (50-130)
[2018-05-14 11:39] LABS: Chol/HDL Ratio 3.25 %; HDL Cholesterol 35 mg/dL (40-59)
[2018-05-14 13:27] LABS: Hepatitis B Surface Antigen Non-Reactive (Negative); Hepatitis C Virus Antibody Non-Reactive (NonReactive)
== END 2018-05-14 09:57 | disposition home or self-care (01) ==
LOC: LAB 09:56
PROVIDERS: ATTEND Internal Medicine
DX: E11.9 Type 2 diabetes mellitus without complications (principal); I10 Essential (primary) hypertension; E78.2 Mixed hyperlipidemia; E66.09 Other obesity due to excess calories; Z90.89 Acquired absence of other organs; R94.5 Abnormal results of liver function studies
CPT/HCPCS: 36415; 80053; 80061; 80074; 82306; 82607; 83036; 84436; 84443; 85025

== ENCOUNTER 2018-10-13 09:44 | Outpatient (CLI) | payer MEDICARE ==
[2018-10-13 11:19] LABS: Chol/HDL Ratio 2.87 %
[2018-10-16 12:36] LABS: Vitamin D, 25-OH, D2 44 ng/mL
== END 2018-10-13 09:45 | disposition home or self-care (01) ==
LOC: LAB 09:44
PROVIDERS: ATTEND Internal Medicine
DX: E11.40 Type 2 diabetes mellitus with diabetic neuropathy, unspecified (principal); E78.2 Mixed hyperlipidemia; E55.9 Vitamin D deficiency, unspecified; I10 Essential (primary) hypertension; Z90.89 Acquired absence of other organs
CPT/HCPCS: 36415; 80061; 82306; 83036

== ENCOUNTER 2019-10-02 13:43 | Emergency (ER) | payer MEDICARE ==
[2019-10-02] MEDS ORDERED: HYDROcodone/ACETAMINOPHEN 5-325 MG TAB PO ONE (16:54)
--- NOTE | 2019-10-02 17:30 | XRay Report ---
Left foreleg 4 views INDICATION: Left foreleg pain following fall IMPRESSION: No fracture of the left foreleg is identified. Mild pretibial soft tissue edema of the up per foreleg. Signer Name: Pete Lowe MD Signed: 10/02/2019 5:26 PM Workstation Name: [id number]
--- NOTE | 2019-10-02 18:05 | XRay Report ---
LEFT ANKLE 3 VIEW(S) INDICATION / CLINICAL INFORMATION: pain/swelling after injury 1 week ago COMPARISON: None available. FINDINGS: BONES / JOINT(S): Ankle mortise is intact. Diffuse ankle edema with mildly increased attenuation yun g the medial aspect with tiny cortical fragments at the inferior medial malleolus possibly representi ng avulsion injury involving the deltoid ligament. Mild haziness around the fourth metatarsal diaphys is possibly represents periostitis and stress injury. No significant arthritis. Inferior and retrocal caneal spurring. SOFT TISSUES: Diffuse ankle swelling. ADDITIONAL FINDINGS: None. IMPRESSION: 1. Tiny distracted cortical fragments at the distal medial malleolus and regional edema/inflammation possibly represents deltoid ligament avulsion injury. Additionally, there is a possible fourth metata rsal stress injury. Consider further evaluation with MR ankle. Signer Name: Reyes Laureano MD Signed: 10/02/2019 6:01 PM Workstation Name: [id number]
--- NOTE | 2019-10-02 18:17 | Emergency Department Report ---
ED Lower Extremity HPI - General Chief Complaint: Extremity Injury, Lower Stated Complaint: FOOT PAIN Time Seen by Provider: 10/02/19 16:53 Source: patient Mode of arrival: Wheelchair Limitations: No Limitations - History of Present Illness Initial Comments: Patient here with left ankle and leg pain and swelling after an injury 1 week ago. Patient reports the swelling, bruising, and pain have worsened since the onset of her injury. She does report some tingling in her foot. She denies any fever. - Related Data Previous Rx's Medication Instructions Recorded Last Taken Type Aspirin [Aspirin BABY CHEW TAB] 81 mg PO QDAY #30 tab.chew 06/19/16 Unknown Rx AtorvaSTATin [Lipitor] 10 mg PO QHS #30 tablet 06/19/16 Unknown Rx Insulin NPH/Regular [NovoLIN 70/30] 5 unit SQ BIDDIAB 30 Days ml 06/19/16 Unknown Rx NIFEdipine XL [Procardia Xl] 60 mg PO QDAY #30 tablet 06/19/16 Unknown Rx Syringe and Needle,Insulin,1Ml 1 each MC BIDDIAB #60 disp.syrin 06/19/16 Unknown Rx [Insulin Syringe/Needle 1 ML] Valsartan [Diovan] 160 mg PO DAILY #30 tablet 06/19/16 Unknown Rx Naproxen 500 mg PO BID PRN #20 tablet 10/02/19 Unknown Rx traMADoL [Ultram 50 MG tab] 50 mg PO Q6HR PRN #10 tablet 10/02/19 Unknown Rx Allergies Allergy/AdvReac Type Severity Reaction Status Date / Time furosemide [From Lasix] Allergy Rash Verified 10/02/19 13:44 cimetidine [From Tagamet] AdvReac BREAK OUT Unverified 07/10/16 12:52 IN BROWN FACIAL BLISTERS cimetidine HCl [From Tagamet] AdvReac BREAK OUT Unverified 07/10/16 12:52 IN BROWN FACIAL BLISTERS ED Review of Systems ROS: Stated complaint: FOOT PAIN Other details as noted in HPI Constitutional: denies: chills, fever ED Past Medical Hx - Past Medical History Previous Medical History?: Yes Hx Hypertension: Yes Hx Diabetes: Yes Additional medical history: afib - Surgical History Past Surgical History?: Yes Additional Surgical History: Tonsilectomy & R arm surgery - Social History Smoking Status: Never Smoker Substance Use Type: None - Medications Home Medications: Home Medications Medication Instructions Recorded Confirmed Last Taken Type Aspirin [Aspirin BABY CHEW TAB] 81 mg PO QDAY #30 tab.chew 06/19/16 Unknown Rx AtorvaSTATin [Lipitor] 10 mg PO QHS #30 tablet 06/19/16 Unknown Rx Insulin NPH/Regular [NovoLIN 70/30] 5 unit SQ BIDDIAB 30 Days ml 06/19/16 Unknown Rx NIFEdipine XL [Procardia Xl] 60 mg PO QDAY #30 tablet 06/19/16 Unknown Rx Syringe and Needle,Insulin,1Ml 1 each MC BIDDIAB #60 disp.syrin 06/19/16 Unknown Rx [Insulin Syringe/Needle 1 ML] Valsartan [Diovan] 160 mg PO DAILY #30 tablet 06/19/16 Unknown Rx Naproxen 500 mg PO BID PRN #20 tablet 10/02/19 Unknown Rx traMADoL [Ultram 50 MG tab] 50 mg PO Q6HR PRN #10 tablet 10/02/19 Unknown Rx ED Physical Exam - General Limitations: No Limitations General appearance: alert, in no apparent distress - Head Head exam: Present: atraumatic, normocephalic - Eye Eye exam: Present: normal appearance. Absent: scleral icterus - Respiratory Respiratory exam: Absent: respiratory distress - Cardiovascular Cardiovascular Exam: Present: regular rate - Extremities Exam Extremities exam: Present: other (Moderate to severe swelling of the left ankle and foot noted with scattered ecchymosis. No erythema noted. Pedal pulses are normal. Normal color and perfusion to foot noted. Foot is warm and not pale in appearance) - Neurological Exam Neurological exam: Present: alert, oriented X3 - Psychiatric Psychiatric exam: Present: normal affect, normal mood - Skin Skin exam: Present: warm, dry, intact. Absent: rash ED Course Vital Signs 10/02/19 10/02/19 10/02/19 13:46 16:58 17:58 Temperature 98.0 F Pulse Rate 80 Respiratory 18 18 18 Rate Blood Pressure 184/107 Blood Pressure [Right] O2 Sat by Pulse 95 Oximetry 10/02/19 18:40 Temperature Pulse Rate 68 Respiratory Rate Blood Pressure Blood Pressure 174/99 [Right] O2 Sat by Pulse Oximetry - Procedure Description Procedures done: [place] splint applied. Patient has normal perfusion in her toes noted post splint application. She denies any discomfort. ED Lower Extremity MDM - Radiology Data Radiology results: report reviewed LEFT ANKLE 3 VIEW(S) INDICATION / CLINICAL INFORMATION: pain/swelling after injury 1 week ago COMPARISON: None available. FINDINGS: BONES / JOINT(S): Ankle mortise is intact. Diffuse ankle edema with mildly increased attenuation along the medial aspect with tiny cortical fragments at the inferior medial malleolus possibly representing avulsion injury involving the deltoid ligament. Mild haziness around the fourth metatarsal diaphysis possibly represents periostitis and stress injury. No significant arthritis. Inferior and retrocalcaneal spurring. SOFT TISSUES: Diffuse ankle swelling. ADDITIONAL FINDINGS: None. IMPRESSION: 1. Tiny distracted cortical fragments at the distal medial malleolus and regional edema/inflammation possibly represents deltoid ligament avulsion injury. Additionally, there is a possible fourth metatarsal stress injury. Consider further evaluation with MR ankle. Left foreleg 4 views INDICATION: Left foreleg pain following fall IMPRESSION: No fracture of the left foreleg is identified. Mild pretibial soft tissue edema of the upper foreleg. - Medical Decision Making Patient here with left ankle and leg pain and swelling after an injury 1 week ago. Normal pedal pulses and color and warmth noted on exam of the leg and foot. X-ray shows medial malleolus avulsion fracture and periostitis of the left little toe. Patient placed in a [place] splint and tolerated procedure well. Patient informed to follow-up with Dr. Roa, orthopedics first thing on Saturday morning. Discussed with patient to be nonweightbearing on ankle, signs and symptoms of compartment syndrome, and strict return precautions in detail with patient who verbalizes understanding. She is well-appearing and stable for discharge home. Critical care attestation.: If time is entered above; I have spent that time in minutes in the direct care of this critically ill patient, excluding procedure time. ED Disposition Clinical Impression: Periostitis Ankle fracture Qualifiers: Encounter type: initial encounter Fracture type: closed Laterality: left Qualified Code(s): S82.892A - Other fracture of left lower leg, initial encounter for closed fracture Disposition: TO HOME OR SELFCARE Is pt being admited?: No Condition: Stable Instructions: Ankle Fracture (ED) Prescriptions: Naproxen 500 mg PO BID PRN #20 tablet PRN Reason: pain traMADoL [Ultram 50 MG tab] 50 mg PO Q6HR PRN #10 tablet PRN Reason: Pain Referrals: WALTER ROA MD [Staff Physician] - 10/05/19 (8am)
[2019-10-02 18:43] VITALS: BP 174/99
== END 2019-10-02 20:06 | disposition home or self-care (01) ==
LOC: ED 13:43
DX: S82.892A Other fracture of left lower leg, initial encounter for closed fracture (principal); M86.8X7 Other osteomyelitis, ankle and foot; I10 Essential (primary) hypertension; E11.9 Type 2 diabetes mellitus without complications; Z79.82 Long term (current) use of aspirin; Z79.899 Other long term (current) drug therapy; X58.XXXA Exposure to other specified factors, initial encounter; Y93.89 Activity, other specified; Y92.89 Other specified places as the place of occurrence of the external cause; Y99.8 Other external cause status
CPT/HCPCS: 99283

== ENCOUNTER 2019-12-10 10:14 | Outpatient (CLI) | payer MEDICARE | END 2019-12-10 10:15 | disposition home or self-care (01) | LOC: LAB 10:14 | PROVIDERS: ATTEND Internal Medicine | DX: Z13.29 Encounter for screening for other suspected endocrine disorder (principal); E11.40 Type 2 diabetes mellitus with diabetic neuropathy, unspecified | CPT/HCPCS: 36415; 83036; 84443 ==

== ENCOUNTER 2020-04-22 09:57 | Outpatient (CLI) | payer MEDICARE ==
[2020-04-22 10:51] LABS: Albumin 4.2 g/dL (3.9-5); Bilirubin,Direct 0.2 mg/dL (0-0.2); Chol/HDL Ratio 2.42 %
== END 2020-04-22 09:58 | disposition home or self-care (01) ==
LOC: LAB 09:57
PROVIDERS: ATTEND Internal Medicine
DX: E11.40 Type 2 diabetes mellitus with diabetic neuropathy, unspecified (principal); R94.5 Abnormal results of liver function studies; E78.2 Mixed hyperlipidemia
CPT/HCPCS: 36415; 80061; 80076; 83036

== ENCOUNTER 2020-07-29 11:04 | Outpatient (CLI) | payer MEDICARE ==
[2020-07-29 11:57] LABS: Chol/HDL Ratio 2.11 %
== END 2020-07-29 11:05 | disposition home or self-care (01) ==
LOC: LAB 11:04
PROVIDERS: ATTEND Internal Medicine
DX: E11.40 Type 2 diabetes mellitus with diabetic neuropathy, unspecified (principal); E78.2 Mixed hyperlipidemia
CPT/HCPCS: 36415; 80061; 83036

== ENCOUNTER 2020-12-06 11:58 | Outpatient (CLI) | payer MEDICARE ==
[2020-12-06 12:22] LABS: Basophils # (Auto) 0.1 K/mm3 (0.0-0.1); Basophils % (Auto) 0.9 % (0.0-1.8); Eosinophils # (Auto) 0.2 K/mm3 (0.0-0.4); Eosinophils % (Auto) 1.9 % (0.0-4.3); Hematocrit 40.6 % (30.3-42.9); Hemoglobin 13.6 gm/dl (10.1-14.3); Lymphocytes # (Auto) 1.8 K/mm3 (1.2-5.4); Lymphocytes % (Auto) 22.3 % (13.4-35.0); Mean Corpuscular HGB Conc 34 % (30-34); Mean Corpuscular Volume 89 fl (79-97); Monocytes # (Auto) 0.5 K/mm3 (0.0-0.8); Monocytes % (Auto) 5.7 % (0.0-7.3); Platelet Count 155 K/mm3 (140-440); Red Blood Count 4.54 M/mm3 (3.65-5.03); Red Cell Distribution Width 13.8 % (13.2-15.2)
[2020-12-06 13:20] LABS: Alanine Aminotransferase 18 units/L (7-56); Albumin 4.3 g/dL (3.9-5); Blood Urea Nitrogen 12 mg/dL (7-17); Calcium 9.3 mg/dL (8.4-10.2); Chol/HDL Ratio 2.27 %; HDL Cholesterol 51 mg/dL (40-59); Hemolysis Index 5; LDL Cholesterol,Direct 54 mg/dL (50-130)
[2020-12-06 13:23] LABS: BUN/Creatinine Ratio 17
[2020-12-09 14:30] LABS: Vitamin D, 25-OH, D2 <4 ng/mL
== END 2020-12-06 11:59 | disposition home or self-care (01) ==
LOC: LAB 11:58
PROVIDERS: ATTEND Internal Medicine
DX: Z13.29 Encounter for screening for other suspected endocrine disorder (principal); Z00.00 Encounter for general adult medical examination without abnormal findings; E11.40 Type 2 diabetes mellitus with diabetic neuropathy, unspecified; E78.2 Mixed hyperlipidemia; E55.9 Vitamin D deficiency, unspecified; I48.91 Unspecified atrial fibrillation; R94.5 Abnormal results of liver function studies
CPT/HCPCS: 36415; 80053; 80061; 82306; 83036; 84443; 85025

== ENCOUNTER 2021-05-30 10:22 | Outpatient (CLI) | payer MEDICARE | END 2021-05-30 10:23 | disposition home or self-care (01) | LOC: LAB 10:22 | PROVIDERS: ATTEND Internal Medicine | DX: E11.40 Type 2 diabetes mellitus with diabetic neuropathy, unspecified (principal) | CPT/HCPCS: 36415; 83036 ==